=== PATIENT | female | born 1960 | race Caucasian/White ===

== ENCOUNTER 2017-06-18 20:59 | Emergency (ER) | payer BC ==
--- NOTE | 2017-06-18 21:16 | UC ---
Respiratory Complaint HPI - HPI Summary HPI Summary: 56 YEAR OLD FEMALE PRESENTS WITH COMPLAINS OF COUGH, SORE THROAT, AND LOSING HER VOICE. - History of Current Complaint Chief Complaint: UCRespiratory Stated Complaint: COUGH Time Seen by Provider: 06/18/17 21:15 Hx Obtained From: Patient Onset/Duration: Sudden Onset Severity Initially: Moderate Severity Currently: Moderate Pain Scale Used: 0-10 Numeric - 5 - Allergies/Home Medications Allergies/Adverse Reactions: Allergies Allergy/AdvReac Type Severity Reaction Status Date / Time No Known Allergies Allergy Verified 06/18/17 21:13 Home Medications: Home Medications buPROPion TAB* [Wellbutrin TAB*] 1 cap PO DAILY 06/18/17 [History Confirmed 08/24] PMH/Surg Hx/FS Hx/Imm Hx Previously Healthy: Yes - Surgical History Surgical History: Yes Surgery Procedure, Year, and Place: App[place] age 6 - Family History Known Family History: Positive: None - Social History Alcohol Use: Occasionally Substance Use Type: None Smoking Status (MU): Former Smoker Review of Systems Constitutional: Negative Skin: Negative Eyes: Negative ENT: Sore Throat, Nasal Discharge, Sinus Congestion Respiratory: Cough Cardiovascular: Negative Gastrointestinal: Negative Genitourinary: Negative Motor: Negative Neurovascular: Negative Musculoskeletal: Negative Neurological: Negative Psychological: Negative All Other Systems Reviewed And Are Negative: Yes Physical Exam Triage Information Reviewed: Yes Vital Signs: Initial Vital Signs Temp 37.3 C 06/18/17 21:09 Pulse 69 06/18/17 21:09 Resp 18 06/18/17 21:09 BP 122/80 06/18/17 21:09 Pulse Ox 98 06/18/17 21:09 Vital Signs Reviewed: Yes Eye Exam: Normal ENT: Positive: Pharyngeal erythema, Nasal congestion, Nasal drainage Dental Exam: Normal Neck exam: Normal Neck: Positive: 1 Respiratory: Positive: Rhonchi, Wheezing Cardiovascular Exam: Normal Abdominal Exam: Normal Musculoskeletal Exam: Normal Neurological Exam: Normal Psychological Exam: Normal Skin Exam: Normal UC Diagnostic Evaluation - Laboratory O2 Sat by Pulse Oximetry: 98 Respiratory Course/Dx - Differential Dx/Diagnosis Provider Diagnoses: BRONCHITIS. COUGH Discharge - Discharge Plan Condition: Stable Disposition: HOME Prescriptions: Amoxicillin/Clavulanate TAB* [Augmentin TAB 875*] 875 mg PO BID #20 tab LoraTADine TAB(NF) [Claritin 10 MG TAB(NF)] 10 mg PO DAILY #30 tab Magic M W2 Musa/Maal/Nyst/Lido* 5 ml SWISH SPIT QID PRN #120 ml PRN Reason: Sore Throat guaiFENesin/CODIEN 100MG-10MG* [Robitussin AC 100Mg-10Mg*] 5 ml PO Q8H PRN #120 ml MDD 15 ml PRN Reason: Cough Patient Education Materials: Acute Cough (ED) Referrals: Jenna Keller MD [Primary Care Provider] -
[2017-06-18] MEDS ORDERED: LoraTADine TAB(NF) 10 MG TAB (AUTOSUB to CETIRIZINE) PO ONE (21:21)
[2017-06-18] MEDS ORDERED: guaiFENesin/CODIEN 100MG-10MG* 5 ML UDC PO ONE (21:22)
[2017-06-18] MEDS ORDERED: Lidocaine 2% VISCOUS* 15 ML UDC SWISH SPIT ONE (21:22)
[2017-06-18 21:40] VITALS: BP 123/79
[2017-06-18] MEDS ORDERED: Amoxicillin/Clavulanate TAB* 875 MG PO ONE (21:50)
== END 2017-06-18 21:57 | disposition home or self-care (01) ==
LOC: UCEAST 20:59
DX: J40 Bronchitis, not specified as acute or chronic (principal); R05 Cough; Z87.891 Personal history of nicotine dependence
CPT/HCPCS: 99213; A9270-GY; G0463